=== PATIENT | male | born 1990 | race African-American/Black ===

== ENCOUNTER 2023-03-05 10:31 | Emergency (ER) | payer MEDICAID, OTHER ==
[~2023-03-05] VITALS: Ht 167.6 cm; Wt 122.8 kg
[2023-03-05] MEDS ORDERED: IBUPROFEN 800 MG TAB PO ONE (12:30)
[2023-03-05] MEDS ORDERED: CYCL-839 PO (12:32)
[2023-03-05] MEDS ORDERED: IBU600T PO (12:32)
[2023-03-05 12:44] VITALS: BP 113/56
== END 2023-03-05 12:33 | disposition home or self-care (01) ==
LOC: ER 10:31
DX: S33.5XXA Sprain of ligaments of lumbar spine, initial encounter (principal); S00.83XA Contusion of other part of head, initial encounter; Y04.0XXA Assault by unarmed brawl or fight, initial encounter; Y93.89 Activity, other specified; Y92.89 Other specified places as the place of occurrence of the external cause; Y99.8 Other external cause status
CPT/HCPCS: 70450; 72100